=== PATIENT | male | born 1985 | race Caucasian/White ===

== ENCOUNTER 2024-01-18 21:30 | Inpatient (IN) | payer MEDICAID, MEDICARE ==
[~2024-01-18] VITALS: Ht 172.7 cm; Wt 62.1 kg
[~2024-01-18 21:30] MED LIST: Aspirin PO; INSU3INS6 SQ; INSU3INS6 SUBCUT; METF-414 PO
[2024-01-18] MEDS: LEVETIRACETAM 1000MG PREMIX 100 ML IV ONE (22:01)
[2024-01-18] MEDS: LORAZEPAM 2MG/ML INJ IV ONE (22:05)
[2024-01-18 22:21] LABS: BASOPHILS % 1.3 % (0.0-2.0); EOSINOPHILS % 1.1 % (0.0-5.0); HEMATOCRIT. 28.8 % (42.0-52.0); HEMOGLOBIN. 9.6 g/dL (14.0-18.0); LYMPHOCYTES % 23.8 % (20.0-50.0); MEAN CORPUSCULAR HEMOGLOBIN 31.4 pg (28.0-32.0); MEAN CORPUSCULAR HGB CONC 33.4 g/dL (31.0-37.0); MEAN CORPUSCULAR VOLUME 94.1 fL (80.0-94.0); MEAN PLATELET VOLUME 7.8 fl (7.4-10.4); MONOCYTES % 8.3 % (2.0-8.0); NEUTROPHILS % 65.5 % (40.0-76.0); PLATELET 254 x1000/uL (130-400); RED BLOOD CELL COUNT 3.06 mill/uL (4.7-6.1); RED CELL DISTRIBUTION WIDTH 16.9 % (11.6-14.6); WHITE BLOOD COUNT 6.4 x1000/uL (4.5-11.0)
[2024-01-18 22:25] LABS: CHLORIDE 115 mEq/L (98-107); POTASSIUM 4.8 mEq/L (3.5-5.1); SODIUM 136 mEq/L (136-145)
[2024-01-18 22:26] LABS: CALCIUM 8.5 mg/dL (8.7-10.4); CARBON DIOXIDE 13 mEq/L (21-32)
[2024-01-18 22:31] LABS: GLUCOSE 259 mg/dL (70-105); UREA NITROGEN BLOOD 32 mg/dL (9-23)
[2024-01-18 22:34] LABS: CREATININE 2.9 mg/dL (0.6-1.3); ETHANOL BLOOD < 10 mg/dL (<10)
[2024-01-19] VITALS (49 sets, daily range): BP systolic 97–124; BP diastolic 71–92; PULSE 64–110; RESP 12–23; TEMP 95–97.5
[2024-01-19] MEDS: SODIUM CHLORIDE 0.9% 500 ML IV ONE (01:15)
[2024-01-19 02:06] LABS: CLARITY URINE CLEAR (CLEAR); COLOR URINE YELLOW (YELLOW); GLUCOSE URINE 3+ (NEGATIVE); KETONES URINE NEGATIVE (NEGATIVE); LEUKOCYTE ESTERASE URINE NEGATIVE (NEGATIVE); NITRITE URINE NEGATIVE (NEGATIVE); OCCULT BLOOD URINE 1+ (NEGATIVE); PH URINE 5.5 (4.5-8.0); PROTEIN URINE 3+ (NEGATIVE); UROBILINOGEN URINE 0.2 E.U./dL (0.2-1.0)
[2024-01-19 02:15] LABS: *AMPHETAMINES SCREEN URINE NEGATIVE (NEGATIVE); *BARBITURATES SCREEN URINE NEGATIVE (NEGATIVE); *BENZODIAZEPINES SCREEN URINE PRESUMPTIVE POSITIVE (NEGATIVE); *COCAINE SCREEN URINE NEGATIVE (NEGATIVE); METHADONE URINE SCREEN NEGATIVE (NEGATIVE); OPIATES URINE SCREEN NEGATIVE (NEGATIVE)
[2024-01-19 02:16] LABS: CANNABINOID URINE SCREEN PRESUMPTIVE POSITIVE (NEGATIVE); ECSTASY MDMA SCREEN URINE NEGATIVE (NEGATIVE); PHENCYCLIDINE URINE SCREEN NEGATIVE (NEGATIVE)
[2024-01-19 03:20] LABS: RBC URINE 0-2 /hpf (0-2); WBC URINE 0-2 /hpf (0-2)
[2024-01-19 03:21] LABS: SQUAMOUS EPITHELIAL CELL URINE FEW /lpf (RARE/1+)
[2024-01-19 03:24] LABS: BACTERIA URINE NONE SEEN
[2024-01-19] MEDS: LEVETIRACETAM 1000MG PREMIX 100 ML IV SCH (09:00)
[2024-01-19] MEDS ORDERED: PANTOPRAZOLE SODIUM 40 MG/VIAL IV SCH (09:30)
[2024-01-19 09:59] LABS: BG BASE EXCESS -15.5 mmol/L (-2.0-2.0); BG CARBOXYHEMOGLOBIN 0.3 % (0.5-1.5); BG DEOXYHEMOGLOBIN 0.9 % (0.0-5.0); BG FRACTION INSPIRED OXYGEN 100; BG HCO3 ACT 10.4 mmol/L (22.0-26.0); BG METHEMOGLOBIN 0.3 % (0.0-1.5); BG OXYGEN SATURATION 99.1 % (92.0-98.5); BG OXYHEMOGLOBIN 98.5 % (94.0-97.0); BG PH 7.236 (7.350-7.450); BG PO2 561.4 mmHg (75.0-100.0); BG SAMPLE SITE RIGHT RADIAL; BG TOTAL HEMOGLOBIN 10.5 g/dL (12.0-18.0); BG TOTAL RESPIRATORY RATE 20 b/min; BG VENT MODE VENT - AC
[2024-01-19] MEDS ORDERED: LORAZEPAM 2MG/ML INJ IM NR (10:15)
[2024-01-19] MEDS ORDERED: IPRATROPIUM/ALBUTEROL 0.5-3(2.5)MG/3ML NEB HHN PRN ×2 (10:30→10:45)
[2024-01-19] MEDS ORDERED: ACETAMINOPHEN 650MG SUPP PR PRN ×2 (10:45)
[2024-01-19] MEDS ORDERED: DEXTROSE 50% WATER 50ML SYRINGE IV PRN (10:45)
[2024-01-19] MEDS: MIDAZOLAM 100MG/100ML PMX 100 ML IV PRN (10:45)
[2024-01-19 11:14] LABS: BASOPHILS % 1.3 % (0.0-2.0); EOSINOPHILS % 1.3 % (0.0-5.0); HEMOGLOBIN. 8.9 g/dL (14.0-18.0); LYMPHOCYTES % 12.7 % (20.0-50.0); MEAN CORPUSCULAR HEMOGLOBIN 30.6 pg (28.0-32.0); MEAN CORPUSCULAR HGB CONC 31.8 g/dL (31.0-37.0); MEAN CORPUSCULAR VOLUME 96.1 fL (80.0-94.0); MEAN PLATELET VOLUME 7.9 fl (7.4-10.4); MONOCYTES % 6.1 % (2.0-8.0); NEUTROPHILS % 78.6 % (40.0-76.0); PLATELET 209 x1000/uL (130-400); RED BLOOD CELL COUNT 2.91 mill/uL (4.7-6.1); RED CELL DISTRIBUTION WIDTH 16.8 % (11.6-14.6); WHITE BLOOD COUNT 6.3 x1000/uL (4.5-11.0)
[2024-01-19] MEDS: PANTOPRAZOLE SODIUM 40 MG/VIAL IV SCH (11:21)
[2024-01-19 11:31] LABS: CARBON DIOXIDE 14 mEq/L (21-32); CHLORIDE 115 mEq/L (98-107); POTASSIUM 4.8 mEq/L (3.5-5.1); SODIUM 137 mEq/L (136-145)
[2024-01-19 11:37] LABS: GLUCOSE 336 mg/dL (70-105); UREA NITROGEN BLOOD 26 mg/dL (9-23)
[2024-01-19 11:39] LABS: PHOSPHORUS 3.1 mg/dL (2.5-4.9)
[2024-01-19 11:47] LABS: CREATINE KINASE 157 IU/L (46-171)
[2024-01-19] MEDS: BLOOD SUGAR DIAGNOSTIC STRIP TEST SCH (12:30)
[2024-01-19] MEDS: IPRATROPIUM/ALBUTEROL 0.5-3(2.5)MG/3ML NEB HHN SCH (12:30)
[2024-01-19] MEDS: INSULIN LISPRO 100 UNITS/ML SUBCUT SCH (12:55)
[2024-01-19] MEDS: SODIUM BICARBONATE 100 MEQ in DEXTROSE 5% WATER 900 ML IV SCH (12:56)
[2024-01-19] MEDS: SODIUM BICARBONATE 8.4% 1 MEQ/ML 50ML SYR IV NR (12:56)
[2024-01-19 15:31] LABS: BG BASE EXCESS -10.3 mmol/L (-2.0-2.0); BG CARBOXYHEMOGLOBIN 0.3 % (0.5-1.5); BG DEOXYHEMOGLOBIN 1.2 % (0.0-5.0); BG FRACTION INSPIRED OXYGEN 40; BG HCO3 ACT 14.4 mmol/L (22.0-26.0); BG METHEMOGLOBIN 0.1 % (0.0-1.5); BG OXYGEN SATURATION 98.8 % (92.0-98.5); BG OXYHEMOGLOBIN 98.4 % (94.0-97.0); BG PCO2 27.7 mmHg (35.0-45.0); BG PH 7.333 (7.350-7.450); BG PO2 238.7 mmHg (75.0-100.0); BG SAMPLE SITE LEFT RADIAL; BG TOTAL RESPIRATORY RATE 23 b/min; BG VENT MODE VENT - AC
[2024-01-19] MEDS: THIAMINE HCL 200 MG in SODIUM CHLORIDE 0.9% 98 ML IV SCH (16:30)
[2024-01-19] MEDS: CLONIDINE 0.1MG TABLET PO PRN (18:19)
[2024-01-19] MEDS: PROPOFOL 10MG/ML 100ML 100 ML IV PRN (23:20)
[2024-01-20] VITALS (77 sets, daily range): BP systolic 117–192; BP diastolic 64–110; PULSE 70–103; RESP 11–34; TEMP 97.5–98; O2SAT 99–100
[2024-01-20 05:55] LABS: BASOPHILS % 1.2 % (0.0-2.0); EOSINOPHILS % 1.4 % (0.0-5.0); HEMATOCRIT. 28.8 % (42.0-52.0); HEMOGLOBIN. 9.5 g/dL (14.0-18.0); LYMPHOCYTES % 16.6 % (20.0-50.0); MEAN CORPUSCULAR HEMOGLOBIN 30.7 pg (28.0-32.0); MEAN PLATELET VOLUME 8.2 fl (7.4-10.4); MONOCYTES % 8.2 % (2.0-8.0); NEUTROPHILS % 72.6 % (40.0-76.0); PLATELET 220 x1000/uL (130-400); RED CELL DISTRIBUTION WIDTH 16.5 % (11.6-14.6); WHITE BLOOD COUNT 6.4 x1000/uL (4.5-11.0)
[2024-01-20 06:12] LABS: CHLORIDE 112 mEq/L (98-107); POTASSIUM 3.7 mEq/L (3.5-5.1); SODIUM 140 mEq/L (136-145)
[2024-01-20 06:14] LABS: CARBON DIOXIDE 20 mEq/L (21-32)
[2024-01-20 06:15] LABS: CALCIUM 8.1 mg/dL (8.7-10.4)
[2024-01-20 06:20] LABS: CREATININE 1.9 mg/dL (0.6-1.3); GLUCOSE 202 mg/dL (70-105); TRIGLYCERIDE 133 mg/dL (0-150); UREA NITROGEN BLOOD 25 mg/dL (9-23)
[2024-01-20 06:21] LABS: ALANINE AMINOTRANSFERASE 55 IU/L (10-49); ALBUMIN 2.8 g/dL (3.2-4.8)
[2024-01-20 06:22] LABS: ASPARTATE AMINOTRANSFERASE 15 IU/L (<34); BILIRUBIN TOTAL 0.4 mg/dL (0.1-1.0); CREATINE KINASE 92 IU/L (46-171); PROTEIN TOTAL 5.1 g/dL (6.0-8.3)
[2024-01-20] MEDS ORDERED: DEXMEDETOMIDINE 400 MCG/100 ML 100 ML IV PRN (09:00)
[2024-01-20 11:06] LABS: CREATININE URINE RANDOM 62.6 mg/dL
[2024-01-20] MEDS ORDERED: LABETALOL 5MG/ML 4ML VIAL IV NR (11:30)
[2024-01-20 11:49] LABS: BG CARBOXYHEMOGLOBIN 0.4 % (0.5-1.5); BG DEOXYHEMOGLOBIN 8.6 % (0.0-5.0); BG FRACTION INSPIRED OXYGEN 21; BG HCO3 ACT 19.3 mmol/L (22.0-26.0); BG METHEMOGLOBIN 0.1 % (0.0-1.5); BG OXYGEN SATURATION 91.4 % (92.0-98.5); BG OXYHEMOGLOBIN 90.9 % (94.0-97.0); BG PCO2 33.2 mmHg (35.0-45.0); BG PH 7.382 (7.350-7.450); BG SAMPLE SITE RIGHT RADIAL; BG TOTAL HEMOGLOBIN 11.8 g/dL (12.0-18.0); BG VENT MODE ROOM AIR
[2024-01-20] MEDS: LABETALOL 5MG/ML 4ML INJ IV NR (12:11)
[2024-01-20] MEDS: INSULIN LISPRO 100 UNITS/ML SUBCUT SCH (12:20)
[2024-01-20] MEDS: MELATONIN 3MG TABLET PO SCH (20:20)
[2024-01-20] MEDS: LABETALOL 5MG/ML 4ML INJ IV PRN (21:14)
[2024-01-21] VITALS (58 sets, daily range): BP systolic 132–185; BP diastolic 83–107; PULSE 83–101; RESP 0–27; TEMP 98.3–98.8; O2SAT 99
[2024-01-21 05:41] LABS: BASOPHILS % 0.6 % (0.0-2.0); EOSINOPHILS % 0.9 % (0.0-5.0); HEMATOCRIT. 27.6 % (42.0-52.0); HEMOGLOBIN. 8.9 g/dL (14.0-18.0); LYMPHOCYTES % 19.5 % (20.0-50.0); MEAN CORPUSCULAR HEMOGLOBIN 30.2 pg (28.0-32.0); MEAN CORPUSCULAR HGB CONC 32.1 g/dL (31.0-37.0); MEAN CORPUSCULAR VOLUME 94.1 fL (80.0-94.0); MEAN PLATELET VOLUME 7.8 fl (7.4-10.4); MONOCYTES % 10.7 % (2.0-8.0); NEUTROPHILS % 68.3 % (40.0-76.0); PLATELET 212 x1000/uL (130-400); POTASSIUM 3.8 mEq/L (3.5-5.1); RED BLOOD CELL COUNT 2.93 mill/uL (4.7-6.1); RED CELL DISTRIBUTION WIDTH 16.7 % (11.6-14.6); WHITE BLOOD COUNT 6.6 x1000/uL (4.5-11.0)
[2024-01-21 05:43] LABS: CALCIUM 7.9 mg/dL (8.7-10.4)
[2024-01-21 05:47] LABS: CREATININE 1.9 mg/dL (0.6-1.3)
[2024-01-21] MEDS: NIFEDIPINE XL 30MG TAB PO SCH (08:37)
[2024-01-21 09:06] LABS: ANTI-NUCLEAR ANTIBODIES DIRECT Positive (Negative); COMPLEMENT C3 94 mg/dL (82-167); COMPLEMENT C4 16 mg/dL (12-38)
[2024-01-21] MEDS: HYDRALAZINE HCL 25MG TABLET PO SCH (15:15)
[2024-01-21] MEDS: LORAZEPAM 2MG/ML INJ IV PRN (21:20)
[2024-01-22] VITALS (31 sets, daily range): BP systolic 111–194; BP diastolic 67–108; PULSE 80–90; RESP 0–25; TEMP 97.5–99; O2SAT 100
[2024-01-22] MEDS: ONDANSETRON HCL 4MG/2ML INJ IV PRN (01:17)
[2024-01-22 04:57] LABS: BASOPHILS % 0.9 % (0.0-2.0); EOSINOPHILS % 1.3 % (0.0-5.0); HEMATOCRIT. 27.2 % (42.0-52.0); HEMOGLOBIN. 8.9 g/dL (14.0-18.0); LYMPHOCYTES % 20.8 % (20.0-50.0); MEAN CORPUSCULAR HEMOGLOBIN 30.6 pg (28.0-32.0); MEAN CORPUSCULAR HGB CONC 32.6 g/dL (31.0-37.0); MEAN PLATELET VOLUME 8.1 fl (7.4-10.4); MONOCYTES % 8.4 % (2.0-8.0); NEUTROPHILS % 68.6 % (40.0-76.0); PLATELET 205 x1000/uL (130-400); RED BLOOD CELL COUNT 2.89 mill/uL (4.7-6.1); RED CELL DISTRIBUTION WIDTH 16.1 % (11.6-14.6); WHITE BLOOD COUNT 6.2 x1000/uL (4.5-11.0)
[2024-01-22 05:13] LABS: CHLORIDE 111 mEq/L (98-107); POTASSIUM 4.1 mEq/L (3.5-5.1); SODIUM 139 mEq/L (136-145)
[2024-01-22 05:14] LABS: CARBON DIOXIDE 21 mEq/L (21-32)
[2024-01-22 05:19] LABS: CREATININE 1.8 mg/dL (0.6-1.3); GLUCOSE 200 mg/dL (70-105); UREA NITROGEN BLOOD 18 mg/dL (9-23)
[2024-01-22 05:21] LABS: PHOSPHORUS 3.2 mg/dL (2.5-4.9)
[2024-01-22] MEDS: MAGNESIUM 2 G PREMIX 50 ML IV NR (08:25)
[2024-01-22] MEDS: LOSARTAN 50 MG TABLET PO SCH (08:26)
[2024-01-22] MEDS ORDERED: NIFE-33 PO (12:16)
[2024-01-22] MEDS ORDERED: HYDR50TA40 MT (12:16)
[2024-01-22] MEDS ORDERED: LOSA50TA41 PO (12:16)
[2024-01-22] MEDS ORDERED: KEPP500 MT (15:13)
== END 2024-01-22 19:45 | disposition home or self-care (01) | DRG 208 ==
LOC: ER 21:30 → 8WST 01-19 00:59 → EDBEDREQ 01-19 01:01 → CVICU 01-19 09:24 → 5EST 01-22 12:00
PROVIDERS: ADMIT Internal Medicine; ATTEND Internal Medicine
PROC: 5A1935Z Respiratory Ventilation, Less than 24 Consecutive Hours (ICD-10-PCS; principal; 2024-01-19)
PROC: 0BH17EZ Insertion of Endotracheal Airway into Trachea, Via Natural or Artificial Opening (ICD-10-PCS; 2024-01-19)
PROC: 4A00X4Z Measurement of Central Nervous Electrical Activity, External Approach (ICD-10-PCS; 2024-01-21)
DX: J96.00 Acute respiratory failure, unspecified whether with hypoxia or hypercapnia (principal); E87.20 Acidosis, unspecified; N17.9 Acute kidney failure, unspecified; G40.909 Epilepsy, unspecified, not intractable, without status epilepticus; D53.9 Nutritional anemia, unspecified; E10.22 Type 1 diabetes mellitus with diabetic chronic kidney disease; E10.65 Type 1 diabetes mellitus with hyperglycemia; F19.10 Other psychoactive substance abuse, uncomplicated; F12.90 Cannabis use, unspecified, uncomplicated; I12.9 Hypertensive chronic kidney disease with stage 1 through stage 4 chronic kidney disease, or unspecified chronic kidney disease; N18.9 Chronic kidney disease, unspecified; Z79.4 Long term (current) use of insulin; Z91.148 Patient's other noncompliance with medication regimen for other reason
CPT/HCPCS: 31500; 36415; 36600; 71045; 76770; 80048; 80053; 80305; 80320; 81003; 82375; 82550; 82570; 82805; 82962; 83036; 83605; 83735; 84100; 84145; 84156; 84478; 85025; 86038; 86160; 87070; 94002; 94003; 94640; 95816; 99291; C9113; J1815; J1953; J2060; J2250; J2405; J2704; J3411; J3475; J3490; J7050; J7070; A4315; G0480